=== PATIENT | female | born 1960 | race Caucasian/White ===

== ENCOUNTER 2018-09-28 12:40 | Emergency (ER) | payer BC, OTHER ==
[~2018-09-28] VITALS: Ht 157.5 cm; Wt 56.5 kg
[2018-09-28] MEDS ORDERED: LEVO25TA2 PO (12:45)
[2018-09-28] MEDS ORDERED: LISI2.5T PO (12:45)
[2018-09-28] MEDS ORDERED: ONDANSETRON ODT 4 MG ONE (12:55)
[2018-09-28] MEDS ORDERED: LIDOCAINE-MPF 1%, 5ML ONE (12:56)
[2018-09-28] MEDS ORDERED: DIPH,PERTUSS(ACELL),TET VAC/PF 0.5 ML IM-VACC ONE ×2 (12:56→13:00)
[2018-09-28] MEDS ORDERED: OXYcodone/APAP 5/325MG TABLET ONE (12:56)
[2018-09-28] MEDS ORDERED: LIDOCAINE-MPF 1%, 5ML INFIL ONE (13:00)
[2018-09-28] MEDS ORDERED: OXYcodone/APAP 5/325MG TABLET PO ONE (13:00)
[2018-09-28] MEDS ORDERED: ONDANSETRON ODT 4 MG PO ONE (13:00)
[2018-09-28] MEDS ORDERED: SODIUM CHLORIDE FLUSH 10ML SYR IVF ONE (13:30)
[2018-09-28] MEDS ORDERED: AMPICILLIN/SULBACTAM 3 GM in SODIUM CHLORIDE 0.9% 100 ML IV ONE (13:30)
[2018-09-28 14:00] VITALS: BP 145/65
[2018-09-28] MEDS ORDERED: BACITRACIN ZINC OINT 500U/GM, 0.9 GM ONE (14:04)
== END 2018-09-28 14:40 | disposition home or self-care (01) ==
LOC: ED 13:06
DX: S51.811A Laceration without foreign body of right forearm, initial encounter (principal); S51.831A Puncture wound without foreign body of right forearm, initial encounter; I10 Essential (primary) hypertension; W54.0XXA Bitten by dog, initial encounter; Y93.89 Activity, other specified; Y92.410 Unspecified street and highway as the place of occurrence of the external cause; Y99.8 Other external cause status
CPT/HCPCS: 13121; 73090; 90471; 90715; 96365; 99285; J0295; Q0162